=== PATIENT | male | born 1990 | race Caucasian/White ===

== ENCOUNTER → 2018-05-01 | Emergency (ER) | END | disposition home or self-care (01) ==

== ENCOUNTER 2018-06-12 16:58 | Emergency (ER) | END 2018-06-12 19:18 | disposition home or self-care (01) ==

== ENCOUNTER 2018-08-23 07:47 | Emergency (ER) | END 2018-08-23 09:09 | disposition home or self-care (01) ==

== ENCOUNTER 2018-09-08 14:02 | Emergency (ER) | END 2018-09-08 16:53 | disposition home or self-care (01) ==